=== PATIENT | female | born 1955 | race Asian ===

== ENCOUNTER → 2017-10-02 | Outpatient (CLI) | payer OTHER ==
[~2017-10-02] VITALS: Ht 165.1 cm; Wt 66.2 kg
[~2017-10-02] MED LIST: ACIPHEX20 MG PO; CENTRUM SILVER1 EAC4 PO; FISH OIL 1,0001 EAC7 PO; HAIR, SKIN & N1 EAC2 PO; NEXIUM40 MG PO; VITAMIN B12-FO1 EACH PO; VITAMIN C1000 MG PO; VITAMIN D35000 UNIT PO
== END | disposition home or self-care (01) ==
LOC: AMB 11:14
PROC: 0DB68ZX Excision of Stomach, Via Natural or Artificial Opening Endoscopic, Diagnostic (ICD-10-PCS; principal; 2017-10-02)
DX: K29.70 Gastritis, unspecified, without bleeding (principal); K21.9 Gastro-esophageal reflux disease without esophagitis; M85.80 Other specified disorders of bone density and structure, unspecified site; Z90.710 Acquired absence of both cervix and uterus
CPT/HCPCS: 88305; 88342 TC